=== PATIENT | female | born 1975 | race Hispanic/Latino ===

== ENCOUNTER 2018-10-01 19:28 | Emergency (ER) | payer SELFPAY ==
[2018-10-01] MEDS ORDERED: Acetaminophen 500 MG TAB ONE (19:43)
[2018-10-01 20:03] LABS: #Basophils 0.1 thou/uL (0.0-0.2); #Lymphocytes 3.1 thou/uL (1.20-3.40); #Monocytes 0.5 thou/uL (0.11-0.59); #Neutrophils 7.1 thou/uL (1.40-6.50); %Basophils 1.2 % (0.0-1.0); %Eosinophils 0.3 % (0.0-10.0); %Lymphocytes 28.6 % (21.0-51.0); %Monocytes 4.5 % (0.0-10.0); %Neutrophils 65.4 % (42.0-75.0); Hemoglobin 14.8 g/dL (12.0-16.0); Mean Corpuscular HGB CONC 33.5 g/dL (32.0-36.0); Mean Corpuscular Hemoglobin 29.8 pg (27.0-31.0); Mean Corpuscular Volume 89.2 fL (78.0-98.0); Mean Platelet Volume 6.5 fL (7.4-10.4); Platelet Count 346 thou/uL (130-400); RBC Distribution Width 12.6 % (11.5-14.5); Red Blood Cell (RBC) Count 4.95 mill/uL (4.20-5.40); White Blood Cell (WBC) Count 10.9 thou/uL (4.8-10.8)
[2018-10-01 20:23] LABS: ALT (SGPT) 21 U/L (8-55); AST (SGOT) 20 U/L (5-34); Albumin 4.7 g/dL (3.5-5.0); Alkaline Phosphatase 97 U/L (40-150); Anion Gap 14 mmol/L (10-20); BUN (Urea Nitrogen) 10 mg/dL (7.0-18.7); Calc. Creatinine Clearance 0 mL/min (70-130); Calcium 9.7 mg/dL (7.8-10.44); Carbon Dioxide 23 mmol/L (22-29); Chloride 106 mmol/L (98-107); Estimated GFR-MDRD 83; Globulin 4.1 g/dL (2.4-3.5); Glucose 123 mg/dL (70-105); Potassium 3.1 mmol/L (3.5-5.1); Protein, Total 8.8 g/dL (6.0-8.3); Sodium 140 mmol/L (136-145)
[2018-10-01 20:23] LABS: Bilirubin Negative (Negative); Blood, Urine Negative (Negative); Clarity CLEAR (Clear); Glucose, Urine (Dipstick) Negative (Negative); Leukocyte Trace (Negative); Nitrite Negative (Negative); Protein, Urine (Dipstick) Negative (Neg-Trace); Specific Gravity, Urine 1.009 (1.002-1.036); Urobilinogen 0.2 mg/dL (0.2-1.0)
[2018-10-01 20:25] LABS: Bacteria/HPF None Seen HPF (None Seen); Pathc Cast-AUWi Flag 1.16 (0-2.49); RBC/HPF 0-3 HPF (0-3)
--- NOTE | 2018-10-01 20:31 | RAD ---
PORTABLE CHEST: History: Sepsis alert. Abdominal pain. FINDINGS: Lungs are clear. No evidence of infiltrate or vascular congestion. Heart and mediastinum unremarkable . IMPRESSION: No acute findings. POS: [facility]
[2018-10-01 20:33] LABS: Hyaline Casts/LPF 7-10 HYALINE CAST LPF (0-3 Hyaline); Renal Epithelial 0-3 HPF (0-3); Transitional Epithelial 0-3 HPF (0-3)
--- NOTE | 2018-10-01 21:07 | CT ---
CT ABDOMEN AND PELVIS WITHOUT CONTRAST: Technique: Multiple axial tomograms were obtained through the abdomen and pelvis without IV enhanceme nt. Indications: Abdominal pain. FINDINGS: Lung bases are clear. Liver, spleen, and pancreas unremarkable. Adrenal glands unremarkable. Kidneys unremarkable. No hydro nephrosis. No evidence of urinary tract calculus. Bladder is poorly distended but appears unremarkabl e. Small bowel loops appear normal. Appendix not identified however no evidence of appendicitis seen. Th e transverse colon and left colon decompressed and poorly evaluated. No evidence of diverticulitis. The uterus and adnexa are unremarkable. The aorta is unremarkable. No evidence of adenopathy. IMPRESSION: No acute findings. POS: [facility]
== END 2018-10-01 22:00 | disposition home or self-care (01) ==
LOC: ERS 19:28
DX: E86.0 Dehydration (principal); R50.9 Fever, unspecified
CPT/HCPCS: 71045; 74176; 80053; 81003; 81015; 83605; 83690; 85025; 87040; 87086; 87149; 87804; 93005; 96360; 96361